=== PATIENT | female | born 1935 | race Hispanic/Latino ===

== ENCOUNTER 2018-02-10 04:01 | Emergency (ER) | payer OTHER, MEDICARE ==
[~2018-02-10 04:01] MED LIST: CALC-854 PO; CALC625T66 PO; CETI10TA86 PO; FOLI-74 PO; GUAR1PAC2 PO; INSU100C14 SQ; INSU100V12 SQ; LEVO100T12 PO; METO-409 PO; OMEP20CA10 PO; POLY454P5 MC; PREN-61 PO; SENN1TAB11 PO; SIMV40TA59 PO; TEMA30CA PO; TYLENOL PM PO
[2018-02-10] MEDS ORDERED: TRAMADOL HCL 50 MG TABLET ONE (05:05)
== END 2018-02-10 06:24 | disposition home or self-care (01) ==
LOC: EDH 04:01
DX: M48.54XA Collapsed vertebra, not elsewhere classified, thoracic region, initial encounter for fracture (principal); E11.22 Type 2 diabetes mellitus with diabetic chronic kidney disease; I12.0 Hypertensive chronic kidney disease with stage 5 chronic kidney disease or end stage renal disease; N18.6 End stage renal disease; K21.9 Gastro-esophageal reflux disease without esophagitis; E78.00 Pure hypercholesterolemia, unspecified; E07.9 Disorder of thyroid, unspecified; M81.0 Age-related osteoporosis without current pathological fracture; Z79.4 Long term (current) use of insulin; Z99.2 Dependence on renal dialysis; Z85.038 Personal history of other malignant neoplasm of large intestine; Z88.0 Allergy status to penicillin; Z88.6 Allergy status to analgesic agent
CPT/HCPCS: 72100

== ENCOUNTER → 2018-07-22 | Outpatient (CLI) | payer OTHER, MEDICARE | END | disposition home or self-care (01) | LOC: SHCH 11:15 | PROVIDERS: ATTEND Internal Medicine Cardiovascular Disease | DX: I31.3 Pericardial effusion (noninflammatory) (principal); E11.9 Type 2 diabetes mellitus without complications; Z79.4 Long term (current) use of insulin | CPT/HCPCS: 93306 ==